=== PATIENT | female | born 1955 | race Caucasian/White ===

== ENCOUNTER 2020-08-24 09:13 | Day surgery (SDC) | payer BC, OTHER ==
[2020-08-24] MEDS ORDERED: Lactated Ringers 1,000 ML IV SCH (09:15)
[2020-08-24] MEDS ORDERED: Sodium Chloride 0.9% 10 ML Syringe FLUSH PRN (09:15)
[2020-08-24] MEDS ORDERED: Propofol 200 MG/20 ML SDV ONE ×2 (09:57→10:31)
--- NOTE | 2020-08-24 10:35 | PCM.HPR ---
H & P Addendum review - H & P Addendum Review Date of Original H & P: 08/14/20 Date Reviewed: 08/24/20 Time Reviewed: 10:35 Patient was Examined: No Changes
--- NOTE | 2020-08-24 11:08 | PCM.OPNOTE ---
- General Post-Op/Procedure Note Date of Surgery/Procedure: 08/24/20 Operative Procedure(s): EGD and Colonoscopy Findings: Hiatal Hernia, normal colonoscopy Pre Op Diagnosis: Anemia Post-Op Diagnosis: Same Anesthesia Technique: MAC Primary Surgeon: Miguel Anderson Complications: None Condition: Good
[2020-08-24 13:35] VITALS: BP 143/83; PULSE 54
--- NOTE | 2020-08-24 13:44 | OR ---
Date of Procedure: 08/24/2020 PREOPERATIVE DIAGNOSIS: Anemia. POSTOPERATIVE DIAGNOSES: 1. Hiatal hernia. 2. Normal colonoscopy. PROCEDURES: 1. EGD. 2. Colonoscopy. ANESTHESIA: IV sedation. PROCEDURE IN DETAIL: The patient was brought to the procedure room where she was placed on her left side and IV sedation administered. Oral bite block was placed and the upper endoscope advanced into the esophagus under direct vision without difficulty. Vocal cords were viewed and were normal. The scope was advanced to the third portion of the duodenum. Duodenum and pylorus were normal. Antrum and body of the stomach were normal. Retroflexion reveals a small regular hiatal hernia. Squamocolumnar junction is regular. There is no evidence of esophagitis, erosions, strictures, or other abnormalities. Air was removed from the stomach and the scope withdrawn through the remaining esophagus which appears normal. The patient tolerated this portion of the procedure well. Next, colonoscopy was performed after digital rectal exam was performed, which was normal. Colonoscope was inserted and advanced to the level of the cecum without difficulty. Cecal position was confirmed by identifying the appendiceal lumen and ileocecal valve. Prep was good and surfaces were well visualized. Upon withdrawing the scope, the ascending, transverse, and descending colon were normal in appearance. Sigmoid colon and rectum were normal. Retroflexion was normal. Air was removed and the scope withdrawn. Patient tolerated the procedure well and returned to recovery in stable condition. Recommend routine colon screening again in 10 years. DENI LIND MD /[id number]
== END 2020-08-24 12:30 | disposition home or self-care (01) ==
LOC: LL.SDS 09:13
PROVIDERS: ATTEND Surgery
DX: K44.9 Diaphragmatic hernia without obstruction or gangrene (principal); D50.9 Iron deficiency anemia, unspecified; I10 Essential (primary) hypertension; R41.3 Other amnesia; I49.8 Other specified cardiac arrhythmias; G89.29 Other chronic pain; M25.562 Pain in left knee; M25.561 Pain in right knee; I48.0 Paroxysmal atrial fibrillation; E78.5 Hyperlipidemia, unspecified; E66.9 Obesity, unspecified; F41.9 Anxiety disorder, unspecified; F33.0 Major depressive disorder, recurrent, mild; Z86.010 Personal history of colon polyps; Z79.899 Other long term (current) drug therapy; Z68.33 Body mass index [BMI] 33.0-33.9, adult; Z11.59 Encounter for screening for other viral diseases
CPT/HCPCS: 00813; J2704; J7120; U0002

== ENCOUNTER 2022-03-21 11:11 | Day surgery (SDC) | payer MEDICARE, BC ==
[~2022-03-21 11:11] MED LIST: Midazolam 1 MG/ML 2 ML SDV ONE; Propofol 200 MG/20 ML SDV ONE; Sodium Chloride 0.9% 10 ML Syringe FLUSH PRN
[2022-03-21] MEDS: Lactated Ringers 1,000 ML IV SCH (11:37)
[2022-03-21] MEDS ORDERED: Midazolam 1 MG/ML 2 ML SDV ONE (11:55)
[2022-03-21] MEDS ORDERED: Propofol 200 MG/20 ML SDV ONE (11:55)
[2022-03-21] MEDS ORDERED: Glycopyrrolate 0.2 MG/ML SDV ONE (11:55)
[2022-03-21 15:52] VITALS: BP 133/74; PULSE 58
== END 2022-03-21 13:50 | disposition home or self-care (01) ==
LOC: LL.SDS 11:11
PROVIDERS: ATTEND Surgery
DX: K57.30 Diverticulosis of large intestine without perforation or abscess without bleeding (principal); D50.9 Iron deficiency anemia, unspecified; K44.9 Diaphragmatic hernia without obstruction or gangrene; I48.0 Paroxysmal atrial fibrillation; I10 Essential (primary) hypertension; G56.02 Carpal tunnel syndrome, left upper limb; F33.0 Major depressive disorder, recurrent, mild; Z79.899 Other long term (current) drug therapy; Z87.891 Personal history of nicotine dependence
CPT/HCPCS: 00813; J2250; J2704; J3490; J7120